=== PATIENT | female | born 1995 | race Hispanic/Latino ===

== ENCOUNTER 2017-03-23 19:35 | Day surgery (SDC) | payer OTHER ==
[2017-03-23 20:18] VITALS: BMI 31.1
[2017-03-23 20:27] LABS: Amnisure Test No Membranes Rupture (No Rupture)
[2017-03-23 20:28] LABS: Amnisure Internal Control QC ACCEPTABLE (ACCEPTABLE)
--- NOTE | 2017-03-23 21:35 | PDOC.LDHP ---
Labor and Delivery H&P Chief complaint: loss of fluid HPI: 21 y/o G1 at 39w6d, patient of Dr. Hart, presents with a small gush of fluid that wet her underwear. No continued leaking. Denies VB, ctx, or decreased FM. ROS neg for HEENT, CV, pulm, GI, , neuro, psych, skin, musculoskeletal, or constitutional symptoms other than mentioned above. OB History Details: First Current complications: none Past Medical History: Heart murmur as child Current medications: other Previous surgical history: other (ear tubes) Allergies/Adverse Reactions: Allergies Allergy/AdvReac Type Severity Reaction Status Date / Time cefprozil [From Cefzil] Allergy Severe Anaphylaxis Verified 03/23/17 20:16 strawberry Allergy Severe Anaphylaxis Verified 03/23/17 20:16 Social history: tobacco use (quit), alcohol use (quit), drug use (quit) - Physical Exam Vital signs reviewed and normal: yes General: NAD, resting Lungs: nonlabored breathing Abdomen: gravid Extremeties: no edema FHT: category 1 (135, mod variability, + accels, no decels) [place] contractions every: occasional - Vaginal Exam cm dilated: 1 Effacement: 50% Station: -3 - OB Labs Additional Labs: Amnisure negative - Assessment 21 y/o G1 at 39w6d with no e/o SROM. status reassuring with reactive NST. - Plan -: D/c home with precautions. Advised to keep all scheduled follow ups.
== END 2017-03-23 20:56 | disposition home or self-care (01) ==
LOC: L&D/OP 19:35
PROVIDERS: ATTEND Obstetrics & Gynecology
DX: O26.893 Other specified pregnancy related conditions, third trimester (principal); Z3A.39 39 weeks gestation of pregnancy; Z79.899 Other long term (current) drug therapy; Z88.1 Allergy status to other antibiotic agents; Z91.018 Allergy to other foods; Z98.890 Other specified postprocedural states; Z87.891 Personal history of nicotine dependence
CPT/HCPCS: 84112

== ENCOUNTER 2017-03-24 22:06 | Day surgery (SDC) | payer OTHER ==
[2017-03-24 22:41] VITALS: BMI 31.1
[2017-03-24 22:43] VITALS: BP 121/72; TEMP 98.2
--- NOTE | 2017-03-25 08:11 | ULT ---
PRELIMINARY REPORT/[facility]/EMERGENCY AFTER HOURS PROCEDURE: EXAM: US Uterus, Limited EXAM DATE/TIME: Exam ordered 03/25/2017 12:56 AM CLINICAL HISTORY: 21 years old, female; Signs and symptoms; Other: Contractions, couple of late decels, good strip sinc e then, bpp prior to dc; TECHNIQUE: Real-time ultrasound of the maternal uterus (limited) with image documentation. COMPARISON: No relevant prior studies available. FINDINGS: Fetus: Single live intrauterine gestation. Based on biparietal diameter and head circumference, estim ated age is 37 weeks, 6 days. Position: position is vertex. Heart rate: heart rate 131 beats per minute. Placenta: Placenta is right lateral and unremarkable. No abruption. Amniotic fluid: Oligohydramnios with amniotic fluid volume of 6.1 cm. Biophysical profile score is 6/ 8 with 0 for decreased amniotic fluid volume. Other findings: S/D ratio is 2.0. IMPRESSION: 1. Single live intrauterine gestation as above. 2. Oligohydramnios with amniotic fluid volume of 6.1 cm. 3. Biophysical profile score is 6/8 with 0 for decreased amniotic fluid volume. Thank you for allowing us to participate in the care of your patient. Dictated and Authenticated by: Luis M Rain MD 03/25/2017 2:20 AM Central Time ([place] & [place]) FINAL REPORT EMERGENT AFTER HOURS BIOPHYSICAL PROFILE: FINDINGS/IMPRESSION: I disagree with the findings and impression given in the preliminary report per [facility] physician. 1. There is a single live intrauterine . 2. The biophysical profile is 8 of 8. The preliminary report says this is 6 of 8, but the amniotic fluid volume is within normal limits. POS: [facility]
--- NOTE | 2017-03-25 09:36 | PRG ---
DATE OF SERVICE: 03/24/2017 CHIEF COMPLAINT: Contractions. HISTORY OF PRESENT ILLNESS: At the time of presentation, Ms. Ceuvas is a 21-year-old primigravida [address] Gabrielle Hart for care. The patient presents with complaints of contrac tions all day. She denies any vaginal bleeding or leakage of fluid. She reports good movement throughout the day, although she states that seems somewhat diminished now. REVIEW OF SYSTEMS: Limited review of systems per HPI. HISTORY: Please see labor and delivery admission record included by reference. PHYSICAL EXAMINATION: VITAL SIGNS: Within normal limits. The patient is afebrile. GENERAL: Nontoxic appearing female in no acute distress. OBSTETRIC: heart tracing is reactive. Tocodynamometer shows contractions approximately every 4-5 minutes. GENITOURINARY: Cervix is 1 cm dilated, 50% effaced, this is unchanged over approximately 1 hour. Th e nurse did note that it was midposition and soft. LABORATORY DATA: Biophysical profile was 8/8 with a total KHLOE of 6. ASSESSMENT AND PLAN: A 40-week intrauterine with total biophysical profile of 10/10 with b orderline fluid within amniotic fluid index of 6. The patient is actually scheduled for induction of labor in 2 days. She was discharged to home with kick counts and instructions to return for any dec rease in movement or for labor.
== END 2017-03-25 01:46 | disposition home or self-care (01) ==
LOC: L&D/OP 22:06
PROVIDERS: ATTEND Obstetrics & Gynecology
DX: O47.1 False labor at or after 37 completed weeks of gestation (principal); Z3A.40 40 weeks gestation of pregnancy; Z88.1 Allergy status to other antibiotic agents; Z91.018 Allergy to other foods
CPT/HCPCS: 76819

== ENCOUNTER 2017-03-25 12:51 | Inpatient (IN) | payer SELFPAY, OTHER ==
[~2017-03-25 12:51] MED LIST: Bupivacaine/Epinephrine 0.25% 30 ML VIAL ONE; Lidocaine 2% MPF 10 ML AMP (For Epidural Use) ONE
[2017-03-25] MEDS ORDERED: Misoprostol 200 MCG TAB PR PRN (13:40)
[2017-03-25] MEDS ORDERED: LR / Pitocin 40 units/1000 ml 1,000 ML IV PRN (13:40)
[2017-03-25] MEDS ORDERED: Promethazine HCl 25 MG/ML VIAL IM PRN ×4 (13:40→23:31)
[2017-03-25] MEDS ORDERED: Ondansetron HCl/PF 4 MG/2 ML Vial IVP PRN ×5 (13:40→23:31)
[2017-03-25] MEDS ORDERED: HYDROcodone/Acetaminophen 5/325 mg Tablet PO PRN ×3 (13:40→23:31)
[2017-03-25] MEDS ORDERED: Diphenoxylate HCl/Atropine Tablet PO PRN ×2 (13:40)
[2017-03-25] MEDS ORDERED: Carboprost 250 MCG/ML AMP IM PRN (13:40)
[2017-03-25] MEDS ORDERED: Ibuprofen 800 MG TAB PO PRN (13:40)
[2017-03-25] MEDS ORDERED: Lidocaine 1% (PF) 30 ML VIAL SC PRN (13:40)
[2017-03-25] MEDS ORDERED: Acetaminophen 500 MG TAB PO PRN (13:40)
[2017-03-25] MEDS ORDERED: Methylergonovine 0.2 MG/ML VIAL IM PRN (13:40)
--- NOTE | 2017-03-25 13:46 | PDOC.LDHP ---
Labor and Delivery H&P Chief complaint: contractions HPI: 21 y/o G1 at 40w1d, patient of Dr. Hart, presents with contractions more painful and closer together. Denies VB, LOF, or other concerns. ROS neg for HEENT, cv, pulm, gi, gu, neuro, psych, musculoskeletal or constitutional symptoms other than mentioned above. OB History Details: First Current complications: other (late onset of care) Current medications: pre- vitamins Previous surgical history: other (ear tubes) Allergies/Adverse Reactions: Allergies Allergy/AdvReac Type Severity Reaction Status Date / Time cefprozil [From Cefzil] Allergy Severe Anaphylaxis Verified 03/25/17 13:22 strawberry Allergy Severe Anaphylaxis Verified 03/25/17 13:22 Social history: tobacco use (quit), alcohol use (quit), drug use (marijuana - quit) - Physical Exam Vital signs reviewed and normal: yes General: NAD, resting Lungs: nonlabored breathing Abdomen: gravid Extremeties: no edema FHT: category 2 (160s, mod variability, + accels, occasional variable decel) [place] contractions every: 3-4 mins - Vaginal Exam cm dilated: 1 Effacement: 90% Station: -2 - OB Labs Blood type: A RH: positive Antibody Screen: negative HIV: negative RPR: negative HEPSAg: negative 1 hour GCT: negative GBS: positive Rubella: immune - Assessment Term patient with mild tachycardia and occasional variable decels, likely in latent labor. - Plan Plan: admit to L&D, labor augmentation if indicated, GBS antibiotic prophylaxis (when laboring), informed consent obtained, anesthesia consult for pain management (if desired) -: Will IV hydrate and observe at this time. If patient converts to spontaneous labor, will start GBS prophylaxis. Dr. Joslyn campoverde.
[2017-03-25 14:13] VITALS: BMI 31.1
[2017-03-25] MEDS: Lactated Ringer's 1,000 ML IV SCH ×3 (14:13→21:52)
[2017-03-25 14:45] LABS: Hemoglobin 10.8 g/dL (12.0-16.0); Mean Corpuscular HGB CONC 32.3 g/dL (32.0-36.0); Mean Corpuscular Hemoglobin 28.2 pg (25.0-35.0); Mean Corpuscular Volume 87.4 fl (77.0-87.0); Mean Platelet Volume 7.8 fL (7.4-10.4); Platelet Count 304 thou/uL (130-400); RBC Distribution Width 13.8 % (11.5-14.5); Red Blood Cell (RBC) Count 3.84 mill/uL (4.00-5.20); White Blood Cell (WBC) Count 16.1 thou/uL (4.8-10.8)
[2017-03-25 15:25] LABS: HBSAg Index 0.22 S/CO (0-0.99); Hep B Surf Ag Non-Reactive S/CO (NonReactive)
[2017-03-25 15:26] LABS: Syphilis Antibody Nonreactive (Nonreactive); Syphilis Antibody Index 0.04 S/CO (<1.00 Non-Reactive)
[2017-03-25] MEDS ORDERED: Fentanyl 4 mcg/Marc 0.1% Cadd 100 ML ONE (15:38)
[2017-03-25] MEDS ORDERED: Ondansetron HCl/PF 4 MG/2 ML Vial ONE ×2 (16:03→21:44)
[2017-03-25] MEDS ORDERED: Succinylcholine Chloride 20 MG/ML 10 ml SYRINGE FS ONE ×2 (16:03→21:59)
[2017-03-25] MEDS ORDERED: PHENYLEPHRINE-NS 100 MCG/ML 10 ML SYRINGE ONE ×2 (16:03→22:03)
[2017-03-25] MEDS ORDERED: PROPOFOL 200 MG/20 ML VIAL ONE (16:03)
[2017-03-25] MEDS ORDERED: Lidocaine 2% MPF 10 ML AMP (For Epidural Use) ONE (16:03)
--- NOTE | 2017-03-25 16:11 | PDOC.LDPN ---
Labor & Delivery Progress Note - Subjective Subjective: painful contractions - Objective Vital signs reviewed and normal: yes General: NAD, breathing through contractions Uterine fundus: palpable contractions Dilation: 5 Effacement: 100% Station: -1 FHT: category 2 (150s, mod variability, + accels, occasional variable decels) [place] contractions every: 2 Resuscitative measures: amniofusion Plan: continue plan of care (Will get epidural for pain control. Continue to monitor.)
--- NOTE | 2017-03-25 16:14 | PDOC.LDPN ---
Labor & Delivery Progress Note - Subjective Subjective: painful contractions - Objective Vital signs reviewed and normal: yes General: NAD, breathing through contractions Uterine fundus: non tender Dilation: 4 Effacement: 100% Station: -1 FHT: category 2 (150s, mod variability, + accels, variable decels) Other exam findings: moderate vaginal bleeding AROM: clear fluid IUPC placed: yes FSE placed: yes -: Will start Vancomycin for GBS positive, continue to monitor bleeding and consider amnioinfusion.
[2017-03-25] MEDS ORDERED: Lactated Ringer's 500 ML IV PRN (16:39)
[2017-03-25] MEDS ORDERED: diphenhydrAMINE 50 MG/ML VIAL IVP PRN ×2 (16:39→23:15)
[2017-03-25] MEDS ORDERED: Eucerin (Mineral Oil/Petrolatum,White) 30 gm Jar TOP PRN ×2 (16:39→23:15)
[2017-03-25] MEDS ORDERED: ePHEDrine/0.9% NaCl/PF SYRINGE 50 mg/10 ml SLOW IVP PRN (16:39)
[2017-03-25] MEDS ORDERED: Naloxone HCl 0.4 mg/ml Vial IVP PRN ×4 (16:39→23:15)
[2017-03-25] MEDS ORDERED: Acetaminophen 325 MG TAB PO PRN (16:39)
[2017-03-25] MEDS ORDERED: Fentanyl 4mcg/Marcaine 0.1% Cassette 100 ML EPIDURAL SCH (16:45)
[2017-03-25] MEDS ORDERED: Communication Order-Pharmacy FS SCH ×2 (16:45→23:15)
[2017-03-25 17:09] LABS: Amphetamine Not Detected (NotDetected); Barbiturates Screen Not Detected (NotDetected); Benzodiazepine Screen Not Detected (NotDetected); Cocaine Metabolite Screen Not Detected (NotDetected); Medtox Control Line Valid? VALID (VALID); Medtox Reader # READER 1; Methadone Not Detected (NotDetected); Methamphetamine Not Detected (NotDetected); Opiate Screen Not Detected (NotDetected); Oxycodone Screen Not Detected (NotDetected); Phencyclidine (PCP) Not Detected (NotDetected); THC/Cannabinoid Screen Not Detected (NotDetected); Tricyclic Screen Not Detected (NotDetected)
[2017-03-25] MEDS ORDERED: Bicitra 30 ML UDCUP ONE ×2 (21:36)
[2017-03-25] MEDS ORDERED: Morphine PF 1 MG/ML SYR ONE (21:43)
[2017-03-25] MEDS ORDERED: Fentanyl 100 MCG/2 ML VIAL ONE ×2 (21:43→21:58)
[2017-03-25] MEDS ORDERED: Oxytocin 10 UNITS/ML VIAL ONE ×2 (21:44→22:28)
[2017-03-25] MEDS ORDERED: Ketorolac Tromethamine 30 MG/ML VIAL ONE (21:44)
[2017-03-25] MEDS ORDERED: Lidocaine 2% PF 5 ML VIAL ONE (21:47)
[2017-03-25] MEDS ORDERED: PROPOFOL 20 ML ONE (21:59)
[2017-03-25] MEDS ORDERED: ePHEDrine/0.9% NaCl/PF SYRINGE 50 mg/10 ml ONE (22:03)
[2017-03-25] MEDS ORDERED: Methylergonovine 0.2 MG/ML VIAL ONE (22:14)
[2017-03-25 22:29] LABS: Analyzer IN Cardio ER; Base Excess (BEa) -2.8 mEq/L (0 (+/-) 2.5)
[2017-03-25] MEDS ORDERED: HYDROmorphone 2 MG/ML VIAL SLOW IVP PRN (23:15)
[2017-03-25] MEDS ORDERED: Ketorolac Tromethamine 30 MG/ML VIAL IVP PRN (23:15)
[2017-03-25] MEDS ORDERED: Ketorolac Tromethamine 30 MG/ML VIAL IVP SCH (23:15)
[2017-03-25] MEDS ORDERED: Meperidine HCl/PF 25 MG/ML VIAL SLOW IVP PRN (23:15)
[2017-03-25] MEDS ORDERED: Naloxone HCl 0.4 mg/ml Vial IV PRN (23:15)
[2017-03-25] MEDS ORDERED: Promethazine HCl 25 MG SUPP PR PRN (23:15)
[2017-03-25] MEDS ORDERED: Morphine 10 MG/ML VIAL SLOW IVP PRN (23:15)
[2017-03-25] MEDS ORDERED: Docusate Calcium (SURFAK) 240 MG CAP PO PRN (23:31)
[2017-03-25] MEDS ORDERED: Lanolin Ointment 7 GM TUBE TOP PRN (23:31)
[2017-03-25] MEDS ORDERED: diphenhydrAMINE 25 MG CAP PO PRN (23:31)
[2017-03-25] MEDS ORDERED: Simethicone Chewable 80 MG TAB PO PRN (23:31)
[2017-03-25] MEDS ORDERED: Meperidine HCl/PF 25 MG/ML VIAL ONE (23:38)
[2017-03-25] MEDS ORDERED: Adacel (T-DAP) 0.5 ML VIAL IM ONE (23:59)
[2017-03-26] MEDS ORDERED: HYDROmorphone 0.5 MG/0.5 ML SYRINGE SLOW IVP PRN (00:30)
--- NOTE | 2017-03-26 00:37 | ADD-OP ---
DATE OF SERVICE: 03/25/2017 ADDENDUM I was present and scrubbed to assist the emergent primary low transverse with Dr. Gabrielle Hart. Please see her operative report for full details.
--- NOTE | 2017-03-26 01:07 | OP ---
DATE OF PROCEDURE: 03/25/2017. PREOPERATIVE DIAGNOSES: 1. A 21-year-old G1 at 40 weeks and 1 day with active labor. 2. Category 2 tracing. 3. Transition to a nonreassuring heart tracing with multiple variable decels and a nonreassuri ng pattern. 4. Status post amniotomy with clear fluid and internal monitoring with adequate [place] units wit h unchanged cervical dilation past 7 cm. 5. Group B streptococcus positive. Vancomycin given secondary to severe allergies to cephalosporin. POSTOPERATIVE DIAGNOSES: 1. A 21-year-old G1 at 40 weeks and 1 day with active labor. 2. Category 2 tracing. 3. Transition to a nonreassuring heart tracing with multiple variable decels and a nonreassuri ng pattern. 4. Status post amniotomy with clear fluid and internal monitoring with adequate [place] units wit h unchanged cervical dilation past 7 cm. 5. Group B streptococcus positive. Vancomycin given secondary to severe allergies to cephalosporin. 6. Live-born male with Apgars of 8 and 9 at 1 and 5 minutes respectively. 7. Suspected abruption approximately 40% of the placenta. 8. Peripheral insertion of the cord with bridging vessels, not previously noted on ultrasound. ANESTHESIA: General. ESTIMATED BLOOD LOSS: 900 mL. SURGEON: Gabrielle Hart MD ARTISTIC ASSOCIATE: Janet Hinton MD CLINICAL HISTORY: This patient is a 21-year-old female who presented to labor and delivery with a concern of regular painful contractions. She was placed on the monitor and noted to have cont ractions every 2-3 minutes. She was monitored and made change from 1 cm dilation to 4 cm. At that t raudel, she was admitted and vancomycin was started. The patient did have a congealed clot of blood on presentation; however, shortly thereafter, no continued blood. She progressed with a category 2 trac ing mainly for repetitive variables intermittently with contractions and recovery to moderate variabi lity with accelerations. An amniotomy was performed for placement of her IUPC and FSE for more accur ate monitoring. The patient continued to contract and progress, and she requested an epidural for ma ternal analgesia. Once the epidural was placed, she had a more reassuring tracing. She was evaluate d by the physician and noted to be 6.5 cm; however, thereafter with adequate [place] units, she di d not progress despite regular contractions. The tracing also progressed towards more concerning wit h variables and [id number] variability. The decision was made then to have a surgical deliv lyssa. The physician came in for the delivery and upon arrival noted that the tracing had just taken a turn for less reassuring to a [id number] variability. The decision was made to move rapidly for the that had already been proclaimed. The patient was rolled back to the operating room and she was prepped, cleansed, and draped. Unfortunately, anesthesia was not deemed adequate and at that time, the general anesthetic under rapid sequence was induced. DETAILS OF THE PROCEDURE: At the pranav of the anesthesiologist, the scalpel was used in the midline i n a Pfannenstiel manner to make the incision. This was carried down to the fascia. The fascia was n icked in the midline and the subcutaneous tissue was spread with the surgeon's fingers. The incision was then extended with the [place] scissors bilaterally. The rectus muscles were then from t he superior edge by a blunt dissection. The Fidelia clamps were used x2 to dissect the rectus and the pyramidalis muscles off the lower fascial border. Once this was done, the rectus muscles were separ ated in the midline and the peritoneum was breached with the surgeon's finger. This was extended wit h traction. The bladder blade was placed and the incision over the uterus was made with the scalpel. It was carried down to the amnion and amniotomy was performed with clear fluid. The incision was t hen extended. The surgeon's hand was placed inside and the head was pulled from low in the pel vis up to the incision and delivered through the incision. Once the head was delivered, a nuchal cor d was identified and easily reduced. The anterior shoulder followed by the posterior shoulder follow ed by the remainder of the infant's body was delivered. The cord was doubly clamped and cut. A sect ion of the cord was taken for a cord blood gas and once the infant was taken over to the neonatology nurses in attendance to the delivery, a cord blood was also obtained. The placenta was then delivere d manually intact with a 3-vessel cord. There was noted an approximately 40% abruption on the placen ta as well as a peripheral insertion with bridging vessels. The uterus was then exteriorized and not ed to be extremely flaccid and boggy. Methergine was given in addition to the Pitocin infusion. [place] rine massage and use of dry laps to clean the internal portion of the uterus were employed. The ring forceps were used to clamp all bleeders from the uterine incisions and the incision was closed in a running locking fashion with excellent hemostasis noted afterwards. The gutters and posterior portio n of the abdomen was irrigated and all debris were removed. The uterus was then covered over the inc ision in the anterior surface with Seprafilm noting the normal tubes and ovaries in the process. The uterus was then placed back into the pelvis and the peritoneum was reapproximated with a running sut ure. The rectus muscles were then reapproximated with interrupted [id number] sutures and the pr efascial gutters were cleansed of all debris. The fascia was then closed in a running fashion and th e subcutaneous tissue was irrigated and bleeding was corrected with Bovie cautery. The subcutaneous tissues were then closed with interrupted sutures of 2-0 plain and the skin was closed with a 4-0 Mon ocryl and reinforced with Steri-Strips and Mastisol. A pressure dressing was placed and the patient was allowed to recover in the recovery room in satisfactory condition. Her was a liveborn robina matias, who went to the nursery since the patient went under general anesthesia. Again, had Apgars of 8 a nd 9. The blood gas had a pH of 7.24 and a pCO2 of 62.2 mmHg. There were no other issues surroundin g this surgical delivery. All needle, sponge, lap, and instrument counts were correct x2 at the end of the procedure.
[2017-03-26] MEDS ORDERED: Vancomycin HCl 1 GM in Premix Bag 1 BAG IVPB SCH (03:00)
[2017-03-26] MEDS ORDERED: Ketorolac Tromethamine 30 MG/ML VIAL ONE (05:34)
[2017-03-26] MEDS: HYDROcodone/Acetaminophen 5/325 mg Tablet PO PRN ×3 (05:48→19:54)
[2017-03-26] MEDS: Ibuprofen 800 MG TAB PO SCH ×3 (05:52→22:56)
[2017-03-26] MEDS: Prenatal Vitamin 1 TAB PO SCH (10:33)
[2017-03-26] MEDS: Ferrous Sulfate 325 MG TAB PO SCH ×2 (10:33→18:07)
[2017-03-26] MEDS ORDERED: Naloxone HCl 0.4 mg/ml Vial ONE (11:22)
[2017-03-27] MEDS: HYDROcodone/Acetaminophen 5/325 mg Tablet PO PRN ×4 (04:34→18:36)
[2017-03-27] MEDS: Ibuprofen 800 MG TAB PO SCH ×3 (06:14→21:36)
[2017-03-27] MEDS: Ferrous Sulfate 325 MG TAB PO SCH ×2 (07:40→17:41)
[2017-03-27] MEDS: Prenatal Vitamin 1 TAB PO SCH (08:34)
[2017-03-27 23:28] VITALS: TEMP 98.5
[2017-03-28] MEDS: HYDROcodone/Acetaminophen 5/325 mg Tablet PO PRN ×2 (01:01→05:37)
[2017-03-28] MEDS: Ibuprofen 800 MG TAB PO SCH ×2 (05:37→13:56)
[2017-03-28 06:15] VITALS: BP 119/75
[2017-03-28] MEDS: Prenatal Vitamin 1 TAB PO SCH (08:17)
[2017-03-28] MEDS: Ferrous Sulfate 325 MG TAB PO SCH (08:19)
== END 2017-03-28 15:05 | disposition home or self-care (01) | DRG 765 ==
LOC: L&D/OP 12:51 → L&D 14:01 → 3SE 03-26 10:00 → 3SW 03-27 12:33
PROVIDERS: ADMIT Obstetrics & Gynecology; ATTEND Obstetrics & Gynecology
PROC: 10D00Z1 Extraction of Products of Conception, Low, Open Approach (ICD-10-PCS; principal; 2017-03-25)
PROC: 10H07YZ Insertion of Other Device into Products of Conception, Via Natural or Artificial Opening (ICD-10-PCS; 2017-03-25)
PROC: 10H073Z Insertion of Monitoring Electrode into Products of Conception, Via Natural or Artificial Opening (ICD-10-PCS; 2017-03-25)
PROC: 10907ZC Drainage of Amniotic Fluid, Therapeutic from Products of Conception, Via Natural or Artificial Opening (ICD-10-PCS; 2017-03-25)
PROC: 3E0E7GC Introduction of Other Therapeutic Substance into Products of Conception, Via Natural or Artificial Opening (ICD-10-PCS; 2017-03-25)
DX: O76 Abnormality in fetal heart rate and rhythm complicating labor and delivery (principal); O45.8X3 Other premature separation of placenta, third trimester; O69.81X0 Labor and delivery complicated by cord around neck, without compression, not applicable or unspecified; O99.824 Streptococcus B carrier state complicating childbirth; Z37.0 Single live birth; Z3A.40 40 weeks gestation of pregnancy; O62.2 Other uterine inertia
CPT/HCPCS: 36415; 51702; 76815; 76819; 80306; 82805; 84112; 85027; 86780; 87340; 88307; 99283; 99284; 99285; J1170; J1885; J2001; J2175; J2210; J2274; J2310; J2405; J2590; J2704; J3010; J3370